=== PATIENT | female | born 1955 | race African-American/Black ===

== ENCOUNTER 2017-10-23 12:20 | Emergency (ER) | payer OTHER ==
[~2017-10-23 12:20] MED LIST: PROPOFOL 500 MG/50 ML VIAL IV ONE
[2017-10-23] MEDS: LORazepam 2 MG/ML VIAL ONE ×2 (12:40→13:52)
[2017-10-23] MEDS ORDERED: FOSPHENYTOIN SODIUM IV STA (12:42)
[2017-10-23] MEDS ORDERED: SODIUM CHLORIDE 0.9% IV STA (12:42)
--- NOTE | 2017-10-23 12:42 | ED Physician Documentation ---
Seizure - HISTORIAN Historian: paramedics - [facility] Chief Complaint: Seizure Additional Information: Patient has a known seizure disorder and was at a local store when she was witnessed to have a generalized seizure. Paramedics were called. during their evaluation patient was noted to have another seizure that lasted for about one minute. Enroute patient was noted to have another seizure. Patient was given versed 2mg IV. When the patient arrived at the ED she had another seizure and was given ativan 2mg IV. Pharmacy that the patient uses Timing/Onset/Duration: multiple episodes Last known Well Date: 10/23/17 Last Known Well Time: 11:42 Last known Well Code/Unknown Code: Known Witnessed By: bystander Character of Seizure(s): lost consciousness, "shaking all over" Postictal Symptoms: confusion - ROS NEURO/PSYCH: other (unknown) - PAST HX Previous seizure/seizure disorder: none for years (according to her sister) Etiology: etiology (unknown), other Allergies/Adverse Reactions: Allergies Allergy/AdvReac Type Severity Reaction Status Date / Time No Allergy Information Allergy Unverified 09/29/12 06:20 Available - SOCIAL HX Smoking History: less than 1 pack/day Drug Use: other (not sure what drugs ) - FAMILY HX Family History: none - VITAL SIGNS Vital Signs: Vital Signs Temp Pulse Resp BP Pulse Ox 98.1 F 120 H 28 H 244/125 78 L 10/23/17 12:20 10/23/17 12:20 10/23/17 12:20 10/23/17 12:20 10/23/17 12:20 - REVIEWED ASSESSMENTS Nursing Assessment Reviewed: Yes Vitals Reviewed: Yes Progress - Progress Progress: Shortly after arrival patient has a seizure and was given ativan 2 mg IV. Patient then has another two seizures. Patient was started on Cerbryx 750mg (approx 15mg/kg). ABG showed Ph 6.96, [id number], pO2 74, Hco3 29.9 on RA. Due to repeated seizures and results of ABG pt was intubed, #7 tube. Post intubation BS equal bilat, x-ray show tip of tube about 1-2 cm above bronchial bifurcation. - EKG/XRAY/CT EKG: nonspecific ST T wave chg XRAY: chest ED Results Lab/Radiology - Lab Results Lab Results: Lab Results 10/23/17 10/23/17 10/23/17 12:20 12:20 12:20 WBC 6.10 K/ul K/ul (4.00-12.00) RBC 5.06 M/ul M/ul (3.90-5.20) Hgb 14.5 g/dL g/dL (12.0-16.0) Hct 48.6 % H % (34.5-46.5) MCV 96.0 fl fl (80.0-100.0) MCH 28.6 pg pg (28.0-34.0) MCHC 29.8 g/dL L g/dL (30.0-36.0) RDW 13.7 % % (11.3-14.3) Plt Count 246 K/mm3 K/mm3 (130-400) Neut % (Auto) 24.2 % L % (39.0-79.0) Lymph % (Auto) 65.4 % H % (16.0-50.0) [place] % (Auto) 5.1 % % (0.0-11.0) Eos % (Auto) 1.5 % % (0.0-6.8) Baso % (Auto) 0.9 (0.0-1.5) Neut # (Auto) 1.5 # k/uL # k/uL (1.4-7.7) Lymph # (Auto) 4.0 # k/uL # k/uL (0.6-4.0) [place] # (Auto) 0.3 # k/uL # k/uL (0.0-0.9) Eos # (Auto) 0.1 # k/uL # k/uL (0.0-0.6) Baso # (Auto) 0.1 # k/uL # k/uL (0.0-0.5) Reactive Lymphs % 2.9 % % (0.0-5.0) Reactive Lymphs # 0.2 # k/uL # k/uL (0.0-0.8) pH 6.96 L* (7.35-7.45) pCO2 70 mmhg H* mmhg (35-48) pO2 74 mmhg L mmhg (83-108) HCO3 17.9 Meq/L L Meq/L (21-28) ABG O2 Sat Calc/Daniela 89 % L % (93-100) ABG Base Excess -8.5 L (-2 - +2) Sodium 143 mmol/L mmol/L (136-145) Potassium 3.0 mmol/L L mmol/L (3.5-5.1) Chloride 104 mmol/L mmol/L (98-107) Carbon Dioxide 24 mmol/L mmol/L (22-30) BUN 12 mg/dL mg/dL (7-17) Creatinine 1.00 mg/dL mg/dL (0.52-1.04) Est GFR ( Amer) > 60 (60 - ) Est GFR (Non-Af Amer) > 60 (60 - ) Glucose 126 mg/dL H mg/dL (74-106) Calcium 8.7 mg/dL mg/dL (8.4-10.2) Total Bilirubin 0.3 mg/dL mg/dL (0.2-1.3) AST 21 U/L U/L (15-46) ALT 16 U/L U/L (13-69) Alkaline Phosphatase 61 U/L U/L (38-126) Total Protein 7.9 g/dL g/dL (6.3-8.2) Albumin 4.4 g/dL g/dL (3.5-5.0) - Orders Orders: ED Orders Category Date Time Status Intubation PRN Care 10/23/17 12:50 Active NG [Insert NG tube] 1T Care 10/23/17 13:[address] IV Lock 1T Care 10/23/17 12:29 Active Urinary catheterization 1T Care 10/23/17 12:29 Active CHEST 1VIEW [RAD] Stat Exams 10/23/[address] BRAIN W/O CONTRAST Stat Exams 10/23/17 Ordered ARTERIAL BLOOD GAS Routine Lab 10/23/17 12:20 Completed CBC/PLATELET/DIFF Routine Lab 10/23/17 12:20 Completed CMP Routine Lab 10/23/17 12:20 Completed DRUG SCREEN URINE MEDICAL ONLY Routine Lab 10/23/17 Ordered URINALYSIS Routine Lab 10/23/17 Ordered Etomidate [Amidate] Med 10/23/17 12:48 Discontinued 20 mg IV .STK-MED ONE Fosphenytoin Sodium [Cerebyx] Med 10/23/17 12:43 Discontinued 1,000 mg IV .STK-MED ONE LORazepam [Ativan] Med 10/23/17 12:40 Discontinued 2 mg .ROUTE .STK-MED ONE Midazolam HCl/Pf [Versed] Med 10/23/17 12:48 Discontinued 5 mg IVP .STK-MED ONE Propofol [Diprivan] Med 10/23/17 12:47 Discontinued 200 mg IV .STK-MED ONE EKG WITH COMPARISON Routine Ther 10/23/17 Completed Seizure Physical Exam - Physical Exam General Appearance: no acute distress Altered Mental Status Higher Functions: no response, withdraws, other (no focal neurological deficit noted. ) EENT: nml eye inspection, PERRL Neck/Back: normal inspection, supple Respiratory: no resp. distress, breath sounds nml, no evidence of rib injury. No: wheezes, rales, rhonchi CVS: equal pulses, no murmur, tachycardia Abdomen: non-tender, no organomegaly, nml bowel sounds Skin: warm/dry, normal color Extremities: normal range of motion Observed Seizure Activity in ED: generalized (startd on the left side) Discharge Clincal Impression: Seizure Referrals: Primary Doctor,No [Primary Care Provider] - 2 Days Condition: Stable Disposition: [facility]FER [facility] Decision to Admit: [id number] Date of Decison to Admit: 10/23/17 Decision Time: 13:12
[2017-10-23 12:43] LABS: ABG PH 6.96 (7.35-7.45)
[2017-10-23] MEDS ORDERED: FOSPHENYTOIN SODIUM 500 MG/10 ML VIAL IV ONE (12:43)
[2017-10-23 12:44] LABS: ABG BASE EXCESS -8.5 (-2 - +2)
[2017-10-23 12:48] LABS: BASOPHILS % 0.9 (0.0-1.5); EOSINOPHILS % 1.5 % (0.0-6.8); MEAN CORPUSCULAR HEMOGLOBIN 28.6 pg (28.0-34.0); MONOCYTES % 5.1 % (0.0-11.0); NEUTROPHILS # 1.5 # k/uL (1.4-7.7)
[2017-10-23] MEDS ORDERED: ETOMIDATE 20 MG/10 ML IV ONE (12:48)
[2017-10-23] MEDS ORDERED: LORazepam 2 MG/ML VIAL IVP ONE (12:48)
[2017-10-23] MEDS: PROPOFOL 200 MG/20 ML VIAL IV ONE ×5 (12:48→13:55)
[2017-10-23] MEDS ORDERED: PROPOFOL 500 MG/50 ML VIAL IV ONE (12:48)
[2017-10-23] MEDS ORDERED: MIDAZOLAM HCL 5 MG/5 ML VIAL IVP ONE (12:48)
[2017-10-23] MEDS ORDERED: PROPOFOL 200 MG/20 ML VIAL IV ONE ×2 (12:50→12:58)
[2017-10-23 12:51] LABS: eGFR (African) > 60; eGFR (Non-African) > 60
[2017-10-23] MEDS ORDERED: PROPOFOL 500 MG/50 ML VIAL IV SCH (13:05)
[2017-10-23] MEDS ORDERED: 0.9 % SODIUM CHLORIDE 1,000 ML IV ONE (13:05)
[2017-10-23 13:58] VITALS: BP 136/101
--- NOTE | 2017-10-23 17:28 | Diagnostic Imaging Report ---
VADIM ROWLAND [facility] [id number] [facility].[address] [id number] Report Submission Date: Oct 23, 2017 1:23:58 PM CDT Patient Study Name: INDERJIT VALENTINE Date: Oct 23, 2017 12:54:30 PM CDT Modality Type: DX Gender: F Description: EMERGENCY,CHEST : 59 Institution: [facility] Physician: VADIM ROWLAND Accession: STAT Portable chest History: Tube placement Portable chest dated October 23, 2017 demonstrates a nasogastric tube. The nasogastric tube is seen passing into the stomach. The tip is not visualized. Additionally, an endotracheal tube is present with the tip at the level of the clavicular heads. Heart size is within normal limits. Pulmonary vascularity is normal and lungs are clear. Impression: Nasogastric tube and endotracheal tubes as described. Otherwise, no active disease. Electronically signed on Oct 23, 2017 1:23:58 PM CDT by: Romana BECKETT
== END 2017-10-23 13:40 | disposition short-term general hospital (02) ==
LOC: ED 12:20 → EDBD 12:20 → ED 13:40
DX: G40.909 Epilepsy, unspecified, not intractable, without status epilepticus (principal)
CPT/HCPCS: 36600; 51702; 71045; 80053; 82803; 85025; 93005; J2060; J2704; J7030; Q2009; 96365; 96366; 96374; 96376; 99285; S1016